=== PATIENT | male | born 1985 | race Caucasian/White ===

== ENCOUNTER 2020-09-19 09:01 | Emergency (ER) | payer SELFPAY ==
[2020-09-19] MEDS ORDERED: DIPHTH,PERTUSS(ACELL),TET 0.5 ML DISP.SYRIN IM ONE ×2 (09:29→09:51)
[2020-09-19] MEDS ORDERED: VANCOMYCIN 1,000 MG in DEXTROSE 5%-WATER - 250 ML IVPB ONE (09:34)
[2020-09-19] MEDS ORDERED: VANCOMYCIN 1,000 MG VIAL (RESTRICTED TO ID ONLY) ONE (09:51)
[2020-09-19 10:04] VITALS: TEMP 98.9; BMI 36.9
[2020-09-19 10:04] LABS: BASO % 0.5 % (0-2.0); EOS % 5.2 % (0-4.5); HEMATOCRIT 45.4 % (35.4-49); HEMOGLOBIN 15.5 GM/dl (11.7-16.9); LYMPH % 25.6 % (8-40); MCH 30.1 pg (25.7-33.7); MEAN CELL VOLUME 88.6 fl (80-96); MEAN PLT VOLUME 9.7 fl (7.5-11.1); MONO % 7.2 % (3.8-10.2); NEUT % 61.5 % (42.8-82.8); PLATELET COUNT 157 K/MM3 (134-434); RBC 5.13 M/mm3 (4.00-5.60); RDW 13.3 % (11.9-15.9)
[2020-09-19 10:08] LABS: ACTIVATED PTT 26.6 SECONDS (25.2-36.5)
[2020-09-19 10:12] LABS: BILIRUBIN,TOTAL 0.5 mg/dl (0.2-1); CALCIUM 9.2 mg/dl (8.5-10); CREATININE 0.9 mg/dl (0.55-1.3); POTASSIUM 4.2 mmol/L (3.5-5.1); TOT PROT 7.3 g/dl (6.4-8.2)
[2020-09-19 10:13] LABS: INR 1.06 (0.82-1.09); PROTHROMBIN TIME (PATIENT) 11.8 SEC (10.2-13.0)
[2020-09-19 10:30] VITALS: BP 134/84; PULSE 92
== END 2020-09-19 11:38 | disposition home or self-care (01) ==
LOC: FER 09:01
PROC: 3E0234Z Introduction of Serum, Toxoid and Vaccine into Muscle, Percutaneous Approach (ICD-10-PCS; principal; 2020-09-19)
PROC: 3E03329 Introduction of Other Anti-infective into Peripheral Vein, Percutaneous Approach (ICD-10-PCS; 2020-09-19)
DX: L03.116 Cellulitis of left lower limb (principal)
CPT/HCPCS: 36415; 73590-TC-LT-FY; 80053; 85025; 85610; 85730; 87040; 87070; 87186; 87205; 90715; 99284-25; C9803; U0003; U0005

== ENCOUNTER 2020-09-21 09:44 | Emergency (ER) | payer SELFPAY ==
[2020-09-21 09:53] VITALS: BP 158/103; PULSE 92; TEMP 98.9; BMI 36.9
== END 2020-09-21 11:00 | disposition home or self-care (01) ==
LOC: FER 09:44
DX: R22.42 Localized swelling, mass and lump, left lower limb (principal); L03.116 Cellulitis of left lower limb; Z48.00 Encounter for change or removal of nonsurgical wound dressing
CPT/HCPCS: 93971-TC; 99284-25